=== PATIENT | male | born 2000 | race Caucasian/White ===

== ENCOUNTER 2024-09-28 21:18 | Emergency (ER) | payer BC ==
[2024-09-28 21:23] VITALS: TEMP 98.6
--- NOTE | 2024-09-28 22:26 | ED ---
Chest Pain HPI - General Chief Complaint: Chest Pain Stated Complaint: Chest Pain Time Seen by Provider: 09/28/24 21:57 Source: patient Mode of arrival: ambulatory - History of Present Illness Initial Comments: Patient is a previously healthy 24-year-old male presenting for left-sided chest pain. Patient states that he was finishing dinner tonight with his girlfriend, where they eaten [place] and began experiencing sharp left-sided chest pain that felt like "he is being stabbed in the heart". This persisted for approximately 1 hour and began to improve spontaneously. States now it feels like 3 out of 10 pain and pressure that is radiating across the front of his chest. He states it does not radiate to his back, jaw or arm. No history of ACS or PE. Patient is a non-smoker though does smoke marijuana. No recent surgeries, travel or hospitalizations. No history of clotting disorders. No lower extremity swelling. Denies headache, dizziness, lightheadedness, s hortness of breath, fevers, chills, sore throat, new numbness, new weakness abdominal pain, nausea, vomiting, diarrhea black or bloody stools. Is not estrogen replacement therapy. No history of cancer. States that he he has been having intermittent right rib pain for the last 6 months for which has been seeing his primary care provider but now has left sided pain. Denies cough or hemoptysis. - Related Data Allergies Allergy/AdvReac Type Severity Reaction Status Date / Time No Known Allergies Allergy Verified 09/28/24 21:22 Review of Systems ROS Statement: Those systems with pertinent positive or pertinent negative responses have been documented in the HPI. ROS Other: All systems not noted in ROS Statement are negative. EKG Findings - EKG Comments: EKG Findings:: 64 bpm, sinus rhythm, ID interval 146 ms, QRS duration 97 ms, QT/QTc 429/439 ms, normal axis, no arrhythmia, no ST elevations or depressions, arrhythmia, no Brugada pattern, no arrhythmia Past Medical History Past Medical History: No Reported History History of Any Multi-Drug Resistant Organisms: None Reported Past Surgical History: No Surgical Hx Reported Past Psychological History: No Psychological Hx Reported Smoking Status: Never smoker Past Alcohol Use History: None Reported Past Drug Use History: Marijuana General Exam - General Exam Comments Initial Comments: PE: CONSTITUTIONAL: No apparent distress, well appearing SKIN: Warm, dry, no jaundice, hives or petechiae, no skin changes overlying area of pain EYES: Pupils are equally round, extraocular movements intact without nystagmus, clear conjunctiva, non-icteric sclera HENT: Normocephalic, atraumatic, moist mucus membranes, oropharynx clear without exudates NECK: , Full range of motion, normal appearance PULMONARY: Clear to auscultation without wheezes, rhonchi, or rales, normal excursion, no accessory muscle use and no stridor CARDIOVASCULAR: Regular rate, rhythm, normal S1 and S2. No appreciated murmurs, rubs or gallops. Strong radial pulses with intact distal perfusion. No lower extremity edema GASTROINTESTINAL: Soft, active bowel sounds throughout, non-tender, non- distended, no palpable masses, no rebound or guarding. No hepatosplenomegaly MUSCULOSKELETAL: Extremities have no gross deformity, no edema, redness, or swelling. No calf swelling NEUROLOGIC:_a/o x 3, GCS 15, normal mentation and speech. Moves all extremities x 4 without motor or sensory deficit PSYCHIATRIC:_normal mood and affect, thought process is clear and linear Course Vital Signs 09/28/24 09/28/24 09/28/24 21:20 21:30 23:00 Temperature 98.6 F Pulse Rate 70 66 Pulse Rate [ 62 Aws Consultant ] Respiratory 18 19 Rate Blood Pressure 162/91 140/73 O2 Sat by Pulse 100 97 Oximetry 09/29/24 02:55 Temperature 98.6 F Pulse Rate 57 L Pulse Rate [ Aws Consultant ] Respiratory 18 Rate Blood Pressure 142/92 O2 Sat by Pulse 99 Oximetry Chest Pain MDM - MDM Was pt. sent in by a medical professional or institution (, PA, STAFF ANESTHESIOLOGIST, urgent care, hospital, or prison...) When possible be specific @ -No Did you speak to anyone other than the patient for history (EMS, parent, family, police, friend...)? What history was obtained from this source @ -No Did you review nursing and triage notes (agree or disagree)? Why? @ -I reviewed and agree with nursing and triage notes Were old charts reviewed (outside hosp., previous admission, EMS record, old EKG, old radiological studies, urgent care reports/EKG's, prison records)? Report findings @ no prior medical records for review Differential Diagnosis (chest pain, altered mental status, abdominal pain women, abdominal pain men, vaginal bleeding, weakness, fever, dyspnea, syncope, headache, dizziness, GI bleed, back pain, seizure, CVA, palpatations, mental health, musculoskeletal)? @Differential Chest Pain: Stable Angina, Unstable Angina, STEMI, NSTEMI Aortic Dissection, pericarditis, pleurisy, chostochondirits, Pneumothorax, Musculoskeletal, Esophageal Spasm GERD, Cholecystitis, Pancreatitis, Zoster, this is not meant to be an all- inclusive list. EKG interpreted by me (3pts min.). @64 bpm, sinus rhythm, ID interval 146 ms, QRS duration 97 ms, QT/QTc 429/439 ms, normal axis, no arrhythmia, no ST elevations or depressions, arrhythmia, no Brugada pattern, no arrhythmia X-rays interpreted by me (1pt min.). @No cardiomegaly or consolidations CT interpreted by me (1pt min.). @ -None done U/S interpreted by me (1pt. min.). @ -None done What testing was considered but not performed or refused? (CT, X-rays, U/S, labs)? Why? @ -None What meds were considered but not given or refused? Why? @ -None Did you discuss the management of the patient with other professionals (professionals i.e. , PA, STAFF ANESTHESIOLOGIST, lab, RT, psych nurse, social science professor, aircraft worker, teacher, food safety officer, piano case and bench assembler)? Give summary @ -No Was smoking cessation discussed for >3mins.? @ -No Was critical care preformed (if so, how long)? @ -No Were there social determinants of health that impacted care today? How? ( Homelessness, low income, unemployed, alcoholism, drug addiction, transportation, low edu. Level, literacy, decrease access to med. care, long-term, rehab)? @ -No Was there de-escalation of care discussed even if they declined (Discuss DNR or withdrawal of care, Hospice)? @ -No What co-morbidities impacted this encounter? (DM, HTN, Smoking, COPD, CAD, Cancer, CVA, ARF, Chemo, Hep., AIDS, mental health diagnosis, sleep apnea, morbid obesity)? @ -None Was patient admitted / discharged? Hospital course, mention meds given and route, prescriptions, significant lab abnormalities, going to OR and other pertinent info. @Discharge Patient is a 24-year-old male with no significant medical history presenting for sharp left-sided chest pain. On my assessment patient well-appearing and in no acute distress. States pain has improved spontaneously. No history of sudden cardiac . Patient PERC negative, age less than 50, heart rate less than 100, O2 saturation greater than 95% on room air, no unilateral leg swelling, no hemoptysis no recent surgery or trauma, no prior PE or DVT, no hormone use. Plan for EKG, troponin, BNP, chest x-ray lipase, amylase, basic labs, Pepcid, Protonix, aspirin, Toradol. Patient and girlfriend agreeable with plan. Labs and imaging reviewed. Grossly within normal limits. Abnormal values not concerning for acute pathology related to presenting complaint. On reassessment patient states his pain has improved. Updated on findings. Discussed reassuring workup and plan for discharge. Patient comfortable with discharge home at this point. In my medical judgment there is currently no evidence of an immediate life- threatening or surgical condition. Discharge is therefore indicated at this time. Discharge treatment instructions, follow up instructions, and appropriate emergency department return precautions were discussed with the patient and/or medical decision maker. Patient and/or medical decision maker expressed understanding of and agreed with the treatment plan, follow up instructions, and emergency department return precaution. All patient's and/or medical decision maker's questions were answered. Undiagnosed new problem with uncertain prognosis? @ -No Drug Therapy requiring intensive monitoring for toxicity (Heparin, Nitro, Insulin, Cardizem)? @ -No Were any procedures done? @ -No Diagnosis/symptom? @ -Chest pain Acute, or Chronic, or Acute on Chronic? @ -Acute Uncomplicated (without systemic symptoms) or Complicated (systemic symptoms)? @ -Uncomplicated Side effects of treatment? @ -No Exacerbation, Progression, or Severe Exacerbation? @ -No Poses a threat to life or bodily function? How? (Chest pain, [place], [place], pneumonia, PE, COPD, DKA, ARF, appy, cholecystitis, CVA, Diverticulitis, Homicidal, Suicidal, threat to staff... and all critical care pts) @Potentially, however at time of discharge no Disposition Clinical Impression: Chest pain Disposition: HOME SELF-CARE Condition: Good Instructions (If sedation given, give patient instructions): Costochondritis (ED) Additional Instructions: Every disease is a spectrum and a small chance still exists that a serious condition could develop, for this reason, please monitor yourself closely for new, changing or worsening symptoms, symptoms that persist beyond 48 hours, blood, difficulty in breathing, legs fever, inability to tolerate/keep down fluids or your medications, inability to follow up with outpatient providers as instructed and should you experience these symptoms or should you have any further concerns for your wellbeing please return to the ED or call 911 immediately. PLEASE call your primary care physician as soon as possible to arrange / discuss plan for followup appointment. Appointment in the next 1-3 days is strongly encouraged if possible. PLEASE let us know here before you leave if there is anything further we can do to be of any assistance. Take care and feel Better! Is patient prescribed a controlled substance at d/c from ED?: No Referrals: Chela Pichardo DO [Primary Care Provider] - 1-2 days
--- NOTE | 2024-09-28 22:34 | XR ---
EXAMINATION TYPE: XR chest 2V DATE OF EXAM: 09/28/2024 COMPARISON: NONE HISTORY: Chest pain for one hour. TECHNIQUE: Frontal and lateral views of the chest are obtained. FINDINGS: Overlying EKG leads are present. There is no focal air space opacity, pleural effusion, or pneumothorax seen. The cardiac silhouette size is within normal limits. The osseous structures ar e intact. IMPRESSION: No acute process. [facility], , 09/28/2024 10:31 PM
[2024-09-28] MEDS: SODIUM CHLORIDE 0.9% 1,000 ML IV STA (22:49)
[2024-09-28] MEDS: KETOROLAC 15 MG/ML 1 ML VIAL IVP STA (22:49)
[2024-09-28] MEDS: PANTOPRAZOLE 40 MG TABLET PO STA (22:50)
[2024-09-28] MEDS: FAMOTIDINE 20 MG/2 ML VIAL IV STA (22:51)
[2024-09-28] MEDS: ASPIRIN 81 MG PO STA (22:53)
[2024-09-28 23:25] LABS: Basophils # (A) 0.1 k/uL (0-0.2); Basophils % (A) 1 %; Eosinophils # (A) 0.2 k/uL (0-0.7); Eosinophils % (A) 2 %; HCT 48.3 % (39.0-53.0); Lymphocytes # (A) 2.7 k/uL (1.0-4.8); Lymphocytes % (A) 38 %; MCH 28.1 pg (25.0-35.0); MCV 85.1 fL (80.0-100.0); Mean Platelet Volume 6.7; Monocytes # (A) 0.6 k/uL (0-1.0); Monocytes % (A) 8 %; Neutrophils # (A) 3.5 k/uL (1.3-7.7); Neutrophils % (A) 49 %; Platelet Count 231 k/uL (150-450); RBC 5.68 m/uL (4.30-5.90); RDW 12.3 % (11.5-15.5); WBC 7.1 k/uL (3.8-10.6)
[2024-09-28 23:30] LABS: INR 1.1 (<1.2); Partial Thromboplastin Time 25.9 sec (22.0-30.0); Prothrombin Time 11.7 sec (10.0-12.5)
[2024-09-29 00:04] LABS: ALT 19 U/L (4-49); AST 28 U/L (17-59); African American GFR (CKD) >90 (>60 ml/min/1.73 sqM); Albumin 4.7 g/dL (3.5-5.0); Alkaline Phosphatase 58 U/L (38-126); Amylase 44 U/L (30-110); Anion Gap 8 mmol/L; Blood Urea Nitrogen 10 mg/dL (9-20); Calcium 9.3 mg/dL (8.4-10.2); Carbon Dioxide 29 mmol/L (22-30); Chloride 102 mmol/L (98-107); Glucose 99 mg/dL (74-99); Lipase 74 U/L (23-300); Non-African American GFR(CKD) >90 (>60 ml/min/1.73 sqM); Potassium 3.8 mmol/L (3.5-5.1); Sodium 139 mmol/L (137-145); Total Bilirubin 0.6 mg/dL (0.2-1.3); Total Protein 6.7 g/dL (6.3-8.2)
[2024-09-29 00:12] LABS: NT-Pro-B-Type Natriuretic Pept <20 pg/mL
[2024-09-29 03:11] VITALS: BP 142/92; PULSE 57; RESP 18
== END 2024-09-29 02:55 | disposition home or self-care (01) ==
LOC: EC 21:18
DX: R07.89 Other chest pain (principal)
CPT/HCPCS: 36415 ×2; 93005; 83880; 80053; 82150; 83690; 83735; 84484 ×2; 85025; 85610; 85730; 71046; 99285; 96374; 96375; 96361; J3490; J1885